=== PATIENT | male | born 1940 | race Caucasian/White ===

== ENCOUNTER 2020-10-25 17:46 | Outpatient (REF) | payer MEDICARE, OTHER, SELFPAY | END 2020-10-25 17:47 | disposition home or self-care (01) | LOC: LBN 17:46 | PROVIDERS: PCP Family Medicine; Visit Provider Podiatrist | DX: L03.032 Cellulitis of left toe (principal) | CPT/HCPCS: 87070; 87205 ==

== ENCOUNTER 2020-11-11 08:10 | Day surgery (SDC) | payer MEDICARE, OTHER, SELFPAY ==
--- NOTE | 2020-11-11 07:21 | HPE_ITS ---
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 S/P hardware removal l tka Social History Smoking/Tobacco Use Status: Former Tobacco Use Quit Date: 05/20/62 Smoking risk assessment performed?: Yes Alcohol Intake: current Alcohol Intake frequency: holidays/special occasions only Drug use: Never Substance use type: does not use Do you feel safe at home: Yes Do you feel safe in your relationship?: Yes Meds Allergies and Home Medications Allergies Allergy/AdvReac Type Severity Reaction Status Date / Time codeine Allergy Unverified 09/25/14 08:45 morphine AdvReac Unverified 09/25/14 08:45 Home Medications Medication Instructions Recorded Confirmed Type benzonatate [Tessalon Perle] 100 mg PO TID #30 capsule 09/25/14 11/09/20 Rx duloxetine [Cymbalta] 60 mg PO BID 09/25/14 11/09/20 History gabapentin 300 mg PO TID 09/25/14 11/09/20 History lovastatin 2 tab DAILY 09/25/14 11/09/20 History omeprazole 20 mg PO BID 09/25/14 11/09/20 History amoxicillin 2,000 mg PO NOW PRN 11/09/20 11/09/20 History amoxicillin-pot clavulanate 1 tab PO Q12H PRN 11/09/20 11/09/20 History apixaban [Eliquis] 10 mg PO BID 11/09/20 11/09/20 History clonazepam 1 - 2 mg PO HS PRN 11/09/20 11/09/20 History clotrimazole-betamethasone 1 applic TOPICAL DAILY 11/09/20 11/09/20 History cyanocobalamin (vitamin B-12) 500 mcg PO DAILY 11/09/20 11/09/20 History [Vitamin B-12] cyclosporine [Restasis] 1 drp OPHTHALMIC (EYE) BID 11/09/20 11/09/20 History folic acid 1 mg PO DAILY 11/09/20 11/09/20 History magnesium 250 mg PO DAILY 11/09/20 11/09/20 History multivitamin 1 tab PO DAILY 11/09/20 11/09/20 History mupirocin 1 applic TOPICAL DAILY 11/09/20 11/09/20 History naloxone 4 mg INTRANASAL DIRECTED PRN 11/09/20 11/09/20 History oxycodone 10 - 20 mg PO Q4H PRN 11/09/20 11/09/20 History potassium gluconate 600 mg PO DAILY 11/09/20 11/09/20 History psyllium husk (with sugar) [Daily 1 pwd PO DAILY 11/09/20 11/09/20 History Fiber (psyllium-sucrose)] tamsulosin 0.4 mg PO DAILY 11/09/20 11/09/20 History Exam Narrative Exam Narrative: 80-year-old white male with multiple comorbidities with a chronic wound to the left great toe superimposed on a hallux limitus deformity, in no acute distress. Head is normocephalic Eyes PERRLA Hearing is diminished but adequate Uvular is midline Heart had regular rate and rhythm although history of flutter noted Lung fowler were clear Abdomen soft bowel sounds appreciated Peripheral pulses palpable at the ankle 2/4 no edema Muscle groups are 5 out of 5 bilaterally Skeletal exam reveals pronated foot with hallux limitus deformity with a chronic wound noted plantar medial aspect IPJ without signs of infection Neurologically he is grossly intact toes are downgoing no focal deficits Impressions hallux limitus deformity left foot with chronic ulceration of the IPJ Plan: We will is being brought to the OR for a Keith type bunionectomy of his left foot. He understands risk and complications pertaining to pain, scarring, infection, shortening of the great toe, floating of the great toe, failure of the ulceration to resolve potentially requiring revisional procedures if not loss of the great toe. All questions have been answered in detail no promises made to final outcome of surgery. Informed consents been obtained.
[2020-11-11 08:24] VITALS: BP 121/56; PULSE 52; RESP 18; TEMP 36.1; O2SAT 99
--- NOTE | 2020-11-11 08:53 | W.ANESPRE ---
General Info Date of Service Date Performed: 11/11/20 Height: 6 ft 3.98 in Weight: 120.1 kg Body Mass Index (BMI): 32.2 Surgical Procedure: Operation Date: 11/11/20 10:25 Proposed Procedures Side Surgeon p JOSE BUNIONECTOMY LT FOOT Left Jack Veloz DPM Meds Allergies and Home Medications Allergies Allergy/AdvReac Type Severity Reaction Status Date / Time codeine Allergy Unverified 09/25/14 08:45 morphine AdvReac Unverified 09/25/14 08:45 Home Medication Medication Instructions Recorded benzonatate [Tessalon Perle] 100 mg PO TID #30 capsule 09/25/14 duloxetine [Cymbalta] 60 mg PO BID 09/25/14 gabapentin 300 mg PO TID 09/25/14 lovastatin 2 tab DAILY 09/25/14 omeprazole 20 mg PO BID 09/25/14 amoxicillin 2,000 mg PO NOW PRN 11/09/20 amoxicillin-pot clavulanate 1 tab PO Q12H PRN 11/09/20 apixaban [Eliquis] 10 mg PO BID 11/09/20 clonazepam 1 - 2 mg PO HS PRN 11/09/20 clotrimazole-betamethasone 1 applic TOPICAL DAILY 11/09/20 cyanocobalamin (vitamin B-12) 500 mcg PO DAILY 11/09/20 [Vitamin B-12] cyclosporine [Restasis] 1 drp OPHTHALMIC (EYE) BID 11/09/20 folic acid 1 mg PO DAILY 11/09/20 magnesium 250 mg PO DAILY 11/09/20 multivitamin 1 tab PO DAILY 11/09/20 mupirocin [Centany] 1 applic TOPICAL DAILY 11/09/20 naloxone 4 mg INTRANASAL DIRECTED PRN 11/09/20 oxycodone 10 - 20 mg PO Q4H PRN 11/09/20 potassium gluconate 600 mg PO DAILY 11/09/20 psyllium husk (with sugar) [Daily 1 pwd PO DAILY 11/09/20 Fiber (psyllium-sucrose)] tamsulosin [Flomax] 0.4 mg PO DAILY 11/09/20 Current Visit Medications: Current Medications Generic Name Dose Route Start Last Admin Trade Name Freq PRN Reason Stop Dose Admin Sodium Chloride 500 mls @ 0 mls/hr 11/11/20 06:00 Saline 500ml Bag IV PRN PRN As Directed Cefazolin Sodium/Dextrose 2 gm in 50 mls @ 100 mls/hr 11/11/20 06:00 Ancef Duplex IVPB PREOP ASHUTOSH Ringer's Solution 1,000 mls @ 80 mls/hr 11/11/20 06:00 IV 12/10/20 23:59 INFUSION ASHUTOSH IV Miscellaneous Supplies 1 each 11/11/20 06:00 Iv Access IV DIRECTED ASHUTOSH Povidone Iodine 0 ml 11/11/20 06:00 Povidone-Iodine Soln. 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 denies this JONATHAN (obstructive sleep apnea) Paroxysmal A-fib Tibial plateau fracture, left Surgical History Surgical History History of cardiac radiofrequency ablation History of gastric bypass pt. states 30 years ago History of left knee replacement S/P hardware removal l tka Tobacco Smoking/Tobacco Use Status: Former Tobacco Use Alcohol Alcohol Intake: current Alcohol intake frequency: holidays/special occasions only Substance Use Substance use: Never Substance use type: does not use Vital Signs and Lab Results Vital Signs Most Recent Vital Signs in EMR: Most Recent Vital Signs Temp Pulse Resp BP Pulse Ox 36.1 C L 52 L 18 121/56 L 99 11/11/20 08:24 11/11/20 08:24 11/11/20 08:24 11/11/20 08:24 11/11/20 08:24 Lab Results Blood Type / Crossmatch: No Data to Display Complete Blood Count: No Data to Display Complete Metabolic Panel: No Data to Display Liver Function Panel: No Data to Display Coagulation Panel: No Data to Display Cardiac Panel: No Data to Display Arterial Blood Gas: No Data to Display Venous Blood Gas: No Data to Display Pancreas Panel: No Data to Display Thyroid Panel: No Data to Display Infectious Disease: No Data to Display Blood Cultures: No Data to Display Toxicology Panel: No Data to Display Anesthesia Assessment and Plan Anesthesia History Personal History: No History of Anesthesia Complications Family History: No Family History of Anesthesia Complications Exercise Tolerance Exercise Tolerance: Metabolic Equivalents<4 Pertinent Negatives Pertinent Negatives: No Symptoms of GERD (Cx with meds), No Major Cardiovascular Symptoms or Complaints (Ablation for parox afib. On anticoags. Off 3 days) and No Major Pulmonary Symptoms or Complaints Cardiac & Pulmonary Exam Cardiac Exam: Normal S1/S2 Heart Sounds Pulmonary Exam: Clear Bilateral Breath Sounds Airway Exam Known Difficult Airway: No Mallampati Class: 2 Mouth Opening: Normal (> 3cm) Thyromental Distance: Greater than 3 cm Facial Hair: Full Sánchez Neck Range of Motion: Full ROM Neck Circumference: Normal Teeth Condition: Normal Dentition and Removable Dentures/Plates Upper ASA Classification ASA Score: ASA 2 Emergency Case?: No NPO Status NPO Status: NPO Clears >2 hours, Solids >8 hours Anesthesia Plan Resuscitation Status: Full Code Anesthesia Technique: General Anesthesia Airway Planned: Natural Airway Monitors Used: Standard Monitors
[2020-11-11 09:00] VITALS: BMI 32.2
[2020-11-11] MEDS: Lactated Ringers 1,000 ML 80 ML IV (09:03)
[2020-11-11] MEDS: ceFAZolin 2 GM/50 ML BAG IVPB (10:42)
[2020-11-11] MEDS: Bupivacaine 0.5% Pres-Free 30 ML VIAL (11:04)
[2020-11-11] MEDS: Lidocaine 1% Multi-Dose 50 ML VIAL (11:04)
[2020-11-11] MEDS: Dexamethasone 4 MG/ML VIAL (11:04)
--- NOTE | 2020-11-11 11:40 | PDOC.DSDIS_ITS ---
Discharge Plan Disposition Patient Disposition: HOME Condition: Good Discharge Details Reason For Visit: ULCER (L) HALLUX Attending Provider: Jack Veloz Primary Care Provider: Aldo Dennison Home Meds and New Rx's Prescriptions: No Action lovastatin 10 MG tablet 2 tab DAILY RF: 0 gabapentin 300 MG capsule 300 mg PO TID RF: 0 omeprazole 20 MG capsule,delayed release(DR/EC) 20 mg PO BID RF: 0 duloxetine [Cymbalta] 60 MG capsule,delayed release(DR/EC) 60 mg PO BID RF: 0 benzonatate [Tessalon Perles] 100 MG capsule 100 mg PO TID Qty: 30 RF: 0 multivitamin Tablet 1 tab PO DAILY RF: 0 clonazepam 1 mg tablet 1 - 2 mg PO HS PRNRF: 0 cyanocobalamin (vitamin B-12) [Vitamin B-12] 500 mcg Tablet 500 mcg PO DAILY RF: 0 tamsulosin [Flomax] 0.4 mg capsule 0.4 mg PO DAILY RF: 0 clotrimazole-betamethasone 1-0.05 % cream 1 applic TOPICAL DAILY RF: 0 folic acid 1 mg Tablet 1 mg PO DAILY RF: 0 magnesium 250 mg Tablet 250 mg PO DAILY RF: 0 mupirocin [Centany] 2 % ointment 1 applic TOPICAL DAILY RF: 0 amoxicillin-pot clavulanate 875-125 mg tablet 1 tab PO Q12H PRN RF: 0 Restasis 0.05 % dropperette 1 drp ophthalmic (eye) BID RF: 0 Eliquis 5 mg tablet 10 mg PO BID RF: 0 potassium gluconate 600 mg (99 mg) Tablet 600 mg PO DAILY RF: 0 naloxone 4 mg/actuation [place],Non-Aerosol 4 mg INTRANASAL DIRECTED PRNRF: 0 Daily Fiber (psyllium-sucrose) 3 gram/7 gram Powder 1 pwd PO DAILY RF: 0 oxycodone 10 mg tablet 10 - 20 mg PO Q4H PRNRF: 0 amoxicillin 500 MG capsule 2,000 mg PO NOW PRNRF: 0 Discharge Instructions Activity:: Elevate Remove Dressings/Wound Care:: Do Not Remove Shower/Bathe:: Cover Diet:: Normal Diet Discharge Orders Discharge Orders: Discharge Order (Routine); Ordered 11/11/20 Ordered By: Jack Veloz DS: Diagnosis Discharge Diagnosis (1) Hallux rigidus, left foot: Status: Acute
--- NOTE | 2020-11-11 11:44 | W.ANESPOSTOP ---
Postoperative Evaluation Date, Time and Location Date Performed: 11/11/20 Time Performed: 11:46 Patient Location: Day Surgery Unit Vital Signs Most Recent Imported Vital Signs: Most Recent Vital Signs Temp Pulse Resp BP Pulse Ox 36.1 C L 52 L 18 121/56 L 99 11/11/20 08:24 11/11/20 08:24 11/11/20 08:24 11/11/20 08:24 11/11/20 08:24 Most Recent Manually Entered Vital Signs: Adult Blood Pressure: 106/56 Heart Rate: 51 Respirations: 14 Oxygen Saturation (%): 96 Temperature (C): 36.3 C Pain Score (0-10 Scale): 0 Pain Score Most Recent Pain Score: 0 Assessment Mental Status: Awake (Alert & Oriented to Patient Baseline) Airway and Respiratory Function: Patent airway with normal (patient baseline) respiratory exam Cardiovascular Function: Hemodynamically Stable Hydration Status: Adequately Hydrated Nausea & Vomiting: No Nausea or Vomiting Pain: Pt. Denies Any Pain Peripheral Nerve Block: Patient did not receive a nerve block
[2020-11-11 11:45] VITALS: BP 106/56; PULSE 51; RESP 14; TEMP 36.4; O2SAT 95
--- NOTE | 2020-11-11 11:45 | W.PM.OP ---
Date of service: 11/11/20 Time of Service: 11:45 Operative Note Operative Note Refer to Anesthesia Record Preop diagnosis left hallux limitus with chronic hallux ulceration Postoperative diagnosis same Operative indications: 80-year-old male with hallux limitus deformity of his left foot with chronic ulceration under the interphalangeal joint which has not responded to palliative nonsurgical treatments. Aidan understands risk and complications of surgery pertaining to pain, scarring, infection, floating of the great toe, shortening of the great toe, ongoing infection requiring additional surgical interventions possibly even loss of the great toe. All questions have been answered in detail, no promises made to final outcome of surgery. Informed consent been obtained. Aidan was brought to the operative suite placed in the supine position with the left foot prepped and draped in the usual sterile podiatric fashion. Attention was directed to the first MPJ where a 5 cm incision was made medial and parallel to the EHL tendon. The incision was deepened in controlled depth fashion hemostasis being acquired with electrocautery. The incision was carried down to the joint capsule which was incised midline extending to the mid 6 portion of the proximal phalangeal base. The base of the proximal phalanx, approximately 1 cm, was resected without difficulty. All rough and bony edges were rasped smooth. Fixation was obtained with a 0.062 K wire in retrograde fashion. Copious irrigation with normal saline was performed. The joint capsule was repaired with simple interrupted suture 3-0 Vicryl. The subcutaneous layers were repaired with 3-0 Vicryl then 4-0 Vicryl simple interrupted suture in a running subcuticular stitch with 4-0 Monocryl utilized to coapt the skin. 4 mg dexamethasone phosphate was infused deeply into the wound Mastisol half-inch Steri-Strips applied followed by Xeroform fluffs Kerlex gauze dressings. Sharp and sponge counts were correct. Aidan left the OR with vital signs stable vascular status intact and will be followed by myself in the office next week.
[2020-11-11 11:46] VITALS: BP 106/56; PULSE 51; RESP 14; TEMPC 36.3; O2SAT 96
[2020-11-11 12:17] VITALS: BP 126/55; PULSE 50; RESP 16; TEMP 36.2; O2SAT 99
== END 2020-11-11 08:11 | disposition home or self-care (01) ==
PROVIDERS: PCP Family Medicine; Visit Provider Podiatrist
PROC: (CPT 28292; principal; 2020-11-11 10:15)
DX: M20.5X2 Other deformities of toe(s) (acquired), left foot (principal); I48.0 Paroxysmal atrial fibrillation; G47.33 Obstructive sleep apnea (adult) (pediatric); I10 Essential (primary) hypertension
CPT/HCPCS: 28292; J0690; J1100

== ENCOUNTER → 2022-05-01 13:20 | Outpatient (CLI) | payer MEDICARE, SELFPAY ==
--- NOTE | 2022-05-01 14:45 | DI.RAD_ITS ---
Exam(s) XR LUMBAR SPINE AP, LAT EXAM: XR LUMBAR SPINE AP, LAT CLINICAL HISTORY: mechanical fall on saturday, ? COMP FX, pain. TECHNIQUE: 2D digital imaging was performed of the lumbar spine. Three images were obtained. AP, l ateral and L5-S1 spot views were obtained. COMPARISON: No exams were available for comparison FINDINGS: BONES: No fracture or destructive lesion. Endplate osteophytes are seen at multiple levels of the lum bar spine. There are degenerative changes of the facets seen at L4-5 and L5-S1. DISKS: There is disc space narrowing at L5-S1. ALIGNMENT: There is a left convex curvature of the lumbar spine. No spondylolysis or spondylolisthes is. SOFT TISSUE: Normal. IMPRESSION: Degenerative changes in the lumbar spine. DATA REPOSITORY: RADIATION DOSE DELIVERED:
== END ==
PROVIDERS: PCP Family Medicine; Visit Provider Internal Medicine
DX: W19.XXXA Unspecified fall, initial encounter (principal); M47.816 Spondylosis without myelopathy or radiculopathy, lumbar region
CPT/HCPCS: 72100

== ENCOUNTER 2022-06-22 00:31 | Outpatient (CLI) | payer MEDICARE, SELFPAY ==
--- NOTE | 2022-06-22 08:12 | DI.MRI_ITS ---
Exam(s) MR LUMBAR SPINE WO/W EXAM: MR LUMBAR SPINE WO/W CLINICAL HISTORY: prior MRI showed abnormal signal at L2 VB,?mets,spondylosis,r93.7,[id number]. TECHNIQUE: Multiplanar multisequence MRI of the Lumbar spine was performed. COMPARISON: MR MR LS SPINE W/WO CONTRAST from 06/08/2020 CR XR LUMBAR SPINE AP, LAT from 05/01/2022 FINDINGS: Conus medullaris is at L1 level . There is no evidence of conus mass nor subjacent clumping of intra thecal nerve roots to suggest arachnoiditis. The distal thecal sac appears unremarkable.There is no evidence of Tarlov intrasacral cysts nor other significant findings within the sacral canal Bones:There are no fractures nor ominous osseous lesions in the lumbar vertebral bodies and visualize d sacrum. There is a small Schmorl's node invagination in the superior endplate of L2 again noted. There are no abnormal enhancing bone lesions in the lumbosacral spinal column. With respect to the individual disc levels... T12-L1: Mild retrolisthesis T12 on L1. No disc herniation or central canal stenosis. No foraminal s tenosis. L1-2: Normal disc height and signal. No disc herniation nor central canal stenosis.No foraminal steno sis. Mild facet degenerative changes. L2-3: Normal disc height. Symmetrical annular bulging. Central canal detail mentions lower normal fo r this age group. No significant foraminal stenosis. No significant facet arthropathy.No foraminal stenosis.No facet arthropathy. L3-4: Normal disc height. Mild symmetrical annular bulging. No distinct focal disc herniation.Mild central canal stenosis.No significant foraminal stenosis. Mild degenerative changes in the facet violeta nts. L4-5: Normal disc height. Very mild degenerative anterolisthesis L4 upon L5 related to facet arthrop athy. Mild annular bulging without a focal disc herniation. Central canal dimensions are lower norm al. Mild foraminal stenosis on the left side. No foraminal stenosis on the right side. L5-S1: This level again exhibits severe advanced disc space narrowing. No listhesis. No disc hernia tion or central canal stenosis. No true foraminal stenosis. Minimal facet degenerative changes. Soft tissues: Multiple bilateral kidney cysts noted. IMPRESSION: 1. Compared to prior MRI scan of May 2020 there is again noted bands narrowing of L5-S1 disc spac e but without disc herniation or central canal stenosis and no significant foraminal stenosis evident at this space despite the amount of disc height loss. 2. Mild findings at the other disc spaces as described above. No dominant disc herniation. No promi nent central canal stenosis nor foraminal stenosis. 3. No ominous osseous lesions. There is a small Schmorl's node invagination in the superior endplate of L2. This was also evident on the prior study and has not progressed. There is no evidence of co mpression fracture at this level nor elsewhere in the lumbosacral spinal column. DATA REPOSITORY:
[2022-06-22 12:39] LABS: CREATININE 1.5 mg/dL (0.70-1.30); Estimated GFR 46.48 (mL/min/1.73m2)
[2022-06-22] MEDS: Gadoterate meglumine 20 ML VIAL IVP (12:52)
[2022-06-22] MEDS: Normal Saline Flush 10 ML SYR IVP (12:52)
== END 2022-06-22 00:51 ==
LOC: DI 00:31
PROVIDERS: PCP Family Medicine; Visit Provider Internal Medicine
DX: R93.7 Abnormal findings on diagnostic imaging of other parts of musculoskeletal system (principal); M47.816 Spondylosis without myelopathy or radiculopathy, lumbar region
CPT/HCPCS: 72158; 82565